=== PATIENT | female | born 1990 | race Caucasian/White ===

== ENCOUNTER 2016-09-06 11:09 | Emergency (ER) | payer OTHER ==
[~2016-09-06 11:09] MED LIST: PRENTAB74 PO
--- NOTE | 2016-09-06 12:03 | EDDOCDS ---
Nurse's Notes [facility] Name: Char Guerra Age: 25 yrs Sex: Female : 1990 Arrival Date: 09/06/2016 Time: 11:09 Bed Triage 1 Private MD: NO PRIMARY PHYSICIAN, . Diagnosis: Cellulitis and abscess of mouth-LEFT UPPER DENTAL ABSCESS;Cutaneous abscess of groin-RIGHT LABIA;Nausea with vomiting, unspecified Presentation: 09/06 11:24 Presenting complaint: Patient states: cold symptoms, toothache, vomiting ingrown hair kpj on right labia and possibly a hemorrhoid x 2 days. Adult Sepsis Screening: The patient does not have new or worsening altered mentation. Patient's respiratory rate is less than 22. Systolic blood pressure is greater than 100. Patient has a qSOFA score of 0- Negative Sepsis Screen. Suicide/Homicide risk assessment- the patient denies having any suicidal and/or homicidal ideations and does not present with any other emotional, behavioral or mental health complaints. 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 Transition of care: patient was not received from another setting of care. 11:24 Acuity: TAI Level 4 [facility] 11:24 Method Of Arrival: Walkin/Carried/Asstd [facility] Triage Assessment: 11:27 General: Appears unkempt, Behavior is appropriate for age. Pain: Location: mouth Pain [facility] currently is 5 out of 10 on a pain scale. Pt Declines HIV testing. Neurological: Level of Consciousness is awake, Oriented to person, place, time. EENT: Poor dentition noted. Reports pain Pain is 5 out of 10 on a pain scale. Respiratory: Airway is patent Respiratory effort is even, unlabored. GI: Reports nausea, vomiting. : Reports ingrown hair right labia. Derm: Skin is pink, warm & dry. 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 clonidine HCl 0.1 mg Oral tab 1 tab 2 times per day (Last dose: 09/06/2016 09:00) 2. Prozac 60 mg Oral cap 1 cap once daily (Last dose: 09/06/2016 09:00) 3. Seroquel 200 mg Oral tab 1 tab nightly (Last dose: 09/05/2016) - PMHx: Bipolar disorder; Borderline Personality Disorder; PTSD; - PSHx: Appendectomy; - Social history: Smoking status: Patient uses tobacco products, heavy tobacco smoker. No barriers to communication noted, The patient speaks fluent Montserratian. - Family history: Not pertinent. - : The pt / caregiver states he / she is not on anticoagulants. Home medication list is obtained from the patient. - Exposure Risk Screening:: None identified. Screenin:01 Screening information is obtained from the patient. Fall risk: No risks identified. srm Assistance ADL's: requires no assistance with activities of daily living. Abuse/DV Screen: The patient / caregiver reports he/she is: not in a situation that causes fear, pain or injury. Nutritional screening: No deficits noted. Advance Directives: There is no active DNR order. home support is adequate. Assessment: 12:01 General: Appears in no apparent distress, Behavior is appropriate for age, cooperative. srm Neurological: No deficits noted. Respiratory: No deficits noted. Vital Signs: 11:11 BP 106 / 59; Pulse 77; Resp 18 S; Temp 97.2(O); Pulse Ox 99% on R/A; Weight 65.77 kg gr2 (R); Height 5 ft. 1 in. (154.94 cm) (R); Pain 5/10; 11:11 Body Mass Index 27.40 (65.77 kg, 154.94 cm) gr2 Vitals: 11:11 Log In Time: September 06, 2016 at 11:11. gr2 ED Course: 11:10 Patient visited by Rosi Moore. gr2 11:10 Patient moved to Waiting gr2 11:11 NO PRIMARY PHYSICIAN, . is Private Physician. gr2 11:13 Patient visited by Rosi Moore. gr2 11:13 Patient moved to Pre RCE gr2 11:25 Triage Initiated [facility] 11:29 [facility] dt4 11:29 Vic Baldwin MD is Attending Physician. dt4 11:29 Patient visited by Sujey Schneider PA-C. dt4 11:29 Patient moved to Triage 1 [facility] 11:52 [facility] is Referral Physician. dt4 12:01 The patient / caregiver is instructed regarding the plan of care and ED course. Patient srm has correct armband on for positive identification. 12:01 No IV's were initiated during this patient's visit. No procedures done that require srm assistance. Order Results: There are currently no results for this order. Outcome: 11:53 Discharge ordered by Provider. dt4 12:01 Discharge Assessment: Patient awake, alert and oriented x 3. No cognitive and/or srm functional deficits noted. Patient verbalized understanding of disposition instructions. patient administered narcotics - no. The following High Risk Discharge criteria are identified: None. Discharged to home ambulatory. Condition: stable. Discharge instructions given to patient, Instructed on discharge instructions, follow up and referral plans. medication usage, Demonstrated understanding of instructions, medications, Pt was receptive of discharge instructions/ teaching. Prescriptions given X 3. No special radiology studies were completed. Property :Personal belongings accompany Pt. 12:02 Patient left the ED. srm Signatures: Patience Balderrama RN RN kpj Michelson, Staci, RN RN srm Raymond, Gainslee gr2 Sujey Schneider PA-C PA-C dt4 MTDTiki
--- NOTE | 2016-09-06 12:03 | EDDOCDS ---
Physician Documentation [facility] Name: Char Guerra Age: 25 yrs Sex: Female : 1990 Arrival Date: 09/06/2016 Time: 11:09 Bed Triage 1 Private MD: NO PRIMARY PHYSICIAN, . Disposition: 09/06/16 11:53 Discharged to Home/Self Care. Impression: Cellulitis and abscess of mouth - LEFT UPPER DENTAL ABSCESS, Cutaneous abscess of groin - RIGHT LABIA, Nausea with vomiting, unspecified. - Condition is Stable. - Discharge Instructions: Abscess, Nausea and Vomiting. - Prescriptions for Clindamycin HCl 300 mg Oral Capsule - take 1 capsule by ORAL route every 6 hours; 40 capsule. ZOFRAN ODT 4 mg - dissolve 1 tablet by ORAL route 4 times per day As needed do not chew, do not swallow whole; 10 tablet. magic mouthwash Mucous Membrane Solution - as directed 5 milliliters by ORAL route 3-4 times daily As needed GARGLE, SWISH, SPIT. MAALOX, LIQUID BENADRYL, VISCOUS LIDOCAINE.; 237 milliliter. - Medication Reconciliation, Local Pharmacy Hours form. - Follow up: Emergency Department; When: As needed; Reason: Worsening of conditions. Follow [facility]: [facility]; When: Call to arrange an appointment; Reason: Recheck today's complaints, Continuance of care, To establish care. - Problem is new. - Symptoms are unchanged. Historical: - Allergies: Geodon (Sleepy); Macrobid (Hives); Zoloft (rivera); - Home Meds: 1. clonidine HCl 0.1 mg Oral tab 1 tab 2 times per day (Last dose: 09/06/2016 09:00) 2. Prozac 60 mg Oral cap 1 cap once daily (Last dose: 09/06/2016 09:00) 3. Seroquel 200 mg Oral tab 1 tab nightly (Last dose: 09/05/2016) - PMHx: Bipolar disorder; Borderline Personality Disorder; PTSD; - PSHx: Appendectomy; - Social history: Smoking status: Patient uses tobacco products, heavy tobacco smoker. No barriers to communication noted, The patient speaks fluent Uzbek. - Family history: Not pertinent. - : The pt / caregiver states he / she is not on anticoagulants. Home medication list is obtained from the patient. - Exposure Risk Screening:: None identified. 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 1 in. (154.94 cm) (R); Pain 5/10; 11:11 Body Mass Index 27.40 (65.77 kg, 154.94 cm) gr2 MDM: 11:34 Financial registration complete. Signatures: Patience Balderrama RN RN kpj Michelson, Staci, RN RN srm Ganter, LoriLee, Francisco Reg Sujey Schneider PA-C PA-C dt4 LIGIA
--- NOTE | 2016-09-08 13:04 | EDDOCDS ---
Nurse's Notes [facility] Name: Char Guerra Age: 25 yrs Sex: Female : 1990 Arrival Date: 09/06/2016 Time: 11:09 Bed Triage 1 Private MD: NO PRIMARY PHYSICIAN, . Diagnosis: Cellulitis and abscess of mouth-LEFT UPPER DENTAL ABSCESS;Cutaneous abscess of groin-RIGHT LABIA;Nausea with vomiting, unspecified Presentation: 09/06 11:24 Presenting complaint: Patient states: cold symptoms, toothache, vomiting ingrown hair kpj on right labia and possibly a hemorrhoid x 2 days. Adult Sepsis Screening: The patient does not have new or worsening altered mentation. Patient's respiratory rate is less than 22. Systolic blood pressure is greater than 100. Patient has a qSOFA score of 0- Negative Sepsis Screen. Suicide/Homicide risk assessment- the patient denies having any suicidal and/or homicidal ideations and does not present with any other emotional, behavioral or mental health complaints. 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 Transition of care: patient was not received from another setting of care. 11:24 Acuity: TAI Level 4 [facility] 11:24 Method Of Arrival: Walkin/Carried/Asstd [facility] Triage Assessment: 11:27 General: Appears unkempt, Behavior is appropriate for age. Pain: Location: mouth Pain [facility] currently is 5 out of 10 on a pain scale. Pt Declines HIV testing. Neurological: Level of Consciousness is awake, Oriented to person, place, time. EENT: Poor dentition noted. Reports pain Pain is 5 out of 10 on a pain scale. Respiratory: Airway is patent Respiratory effort is even, unlabored. GI: Reports nausea, vomiting. : Reports ingrown hair right labia. Derm: Skin is pink, warm & dry. 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 clonidine HCl 0.1 mg Oral tab 1 tab 2 times per day (Last dose: 09/06/2016 09:00) 2. Prozac 60 mg Oral cap 1 cap once daily (Last dose: 09/06/2016 09:00) 3. Seroquel 200 mg Oral tab 1 tab nightly (Last dose: 09/05/2016) - PMHx: Bipolar disorder; Borderline Personality Disorder; PTSD; - PSHx: Appendectomy; - Social history: Smoking status: Patient uses tobacco products, heavy tobacco smoker. No barriers to communication noted, The patient speaks fluent Greenlandic. - Family history: Not pertinent. - : The pt / caregiver states he / she is not on anticoagulants. Home medication list is obtained from the patient. - Exposure Risk Screening:: None identified. Screenin:01 Screening information is obtained from the patient. Fall risk: No risks identified. srm Assistance ADL's: requires no assistance with activities of daily living. Abuse/DV Screen: The patient / caregiver reports he/she is: not in a situation that causes fear, pain or injury. Nutritional screening: No deficits noted. Advance Directives: There is no active DNR order. home support is adequate. Assessment: 12:01 General: Appears in no apparent distress, Behavior is appropriate for age, cooperative. srm Neurological: No deficits noted. Respiratory: No deficits noted. Vital Signs: 11:11 BP 106 / 59; Pulse 77; Resp 18 S; Temp 97.2(O); Pulse Ox 99% on R/A; Weight 65.77 kg gr2 (R); Height 5 ft. 1 in. (154.94 cm) (R); Pain 5/10; 11:11 Body Mass Index 27.40 (65.77 kg, 154.94 cm) gr2 Vitals: 11:11 Log In Time: September 06, 2016 at 11:11. gr2 ED Course: 11:10 Patient visited by oRsi Moore. gr2 11:10 Patient moved to Waiting gr2 11:11 NO PRIMARY PHYSICIAN, . is Private Physician. gr2 11:13 Patient visited by Rosi Moore. gr2 11:13 Patient moved to Pre RCE gr2 11:25 Triage Initiated [facility] 11:29 [facility] dt4 11:29 Vic Baldwin MD is Attending Physician. dt4 11:29 Patient visited by Sujey Schneider PA-C. dt4 11:29 Patient moved to Triage 1 [facility] 11:52 [facility] is Referral Physician. dt4 12:01 The patient / caregiver is instructed regarding the plan of care and ED course. Patient srm has correct armband on for positive identification. 12:01 No IV's were initiated during this patient's visit. No procedures done that require srm assistance. 12:16 [facility] Payment Agreement was scanned into [email or web address] and attached to record. 21:58 T-Sheet-- Draft Copy was scanned into [email or web address] and attached to record. klr Order Results: There are currently no results for this order. Outcome: 11:53 Discharge ordered by Provider. dt4 12:01 Discharge Assessment: Patient awake, alert and oriented x 3. No cognitive and/or srm functional deficits noted. Patient verbalized understanding of disposition instructions. patient administered narcotics - no. The following High Risk Discharge criteria are identified: None. Discharged to home ambulatory. Condition: stable. Discharge instructions given to patient, Instructed on discharge instructions, follow up and referral plans. medication usage, Demonstrated understanding of instructions, medications, Pt was receptive of discharge instructions/ teaching. Prescriptions given X 3. No special radiology studies were completed. Property :Personal belongings accompany Pt. 12:02 Patient left the ED. srm Signatures: Patience Balderrama, RN RN Amie Braxton, RN RN Deloris Lopes, Reg Reg lg Rosi Moore gr2 Sujey Schneider PA-C PA-C dt4 Juanita Jeter Chart Complete MTDD
--- NOTE | 2016-09-08 13:04 | EDDOCDS ---
Physician Documentation [facility] Name: Char Guerra Age: 25 yrs Sex: Female : 1990 Arrival Date: 09/06/2016 Time: 11:09 Bed Triage 1 Private MD: NO PRIMARY PHYSICIAN, . Disposition: 09/06/16 11:53 Discharged to Home/Self Care. Impression: Cellulitis and abscess of mouth - LEFT UPPER DENTAL ABSCESS, Cutaneous abscess of groin - RIGHT LABIA, Nausea with vomiting, unspecified. - Condition is Stable. - Discharge Instructions: Abscess, Nausea and Vomiting. - Prescriptions for Clindamycin HCl 300 mg Oral Capsule - take 1 capsule by ORAL route every 6 hours; 40 capsule. ZOFRAN ODT 4 mg - dissolve 1 tablet by ORAL route 4 times per day As needed do not chew, do not swallow whole; 10 tablet. magic mouthwash Mucous Membrane Solution - as directed 5 milliliters by ORAL route 3-4 times daily As needed GARGLE, SWISH, SPIT. MAALOX, LIQUID BENADRYL, VISCOUS LIDOCAINE.; 237 milliliter. - Medication Reconciliation, Local Pharmacy Hours form. - Follow up: Emergency Department; When: As needed; Reason: Worsening of conditions. Follow [facility]: [facility]; When: Call to arrange an appointment; Reason: Recheck today's complaints, Continuance of care, To establish care. - Problem is new. - Symptoms are unchanged. Historical: - Allergies: Geodon (Sleepy); Macrobid (Hives); Zoloft (rivera); - Home Meds: 1. clonidine HCl 0.1 mg Oral tab 1 tab 2 times per day (Last dose: 09/06/2016 09:00) 2. Prozac 60 mg Oral cap 1 cap once daily (Last dose: 09/06/2016 09:00) 3. Seroquel 200 mg Oral tab 1 tab nightly (Last dose: 09/05/2016) - PMHx: Bipolar disorder; Borderline Personality Disorder; PTSD; - PSHx: Appendectomy; - Social history: Smoking status: Patient uses tobacco products, heavy tobacco smoker. No barriers to communication noted, The patient speaks fluent Frisian. - Family history: Not pertinent. - : The pt / caregiver states he / she is not on anticoagulants. Home medication list is obtained from the patient. - Exposure Risk Screening:: None identified. 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 1 in. (154.94 cm) (R); Pain 5/10; 11:11 Body Mass Index 27.40 (65.77 kg, 154.94 cm) gr2 MDM: 11:34 Financial registration complete. lg 12:16 [facility] Payment Agreement was scanned into [employer] and attached to record. lg 21:58 T-Sheet-- Draft Copy was scanned into [employer] and attached to record. klr Signatures: Patience Balderrama RN RN kpj Michelson, Staci, RN RN [facility] Lucy, Deloris, Reg Reg Sujey Schneider PA-C PA-C dt4 Redder, Kathie klr The chart was reviewed and I authenticate all verbal orders and agree with the evaluation and treatment provided.Attachments: 12:16 [facility] Payment Agreement lg 21:58 T-Sheet-- Draft Copy klr Chart Complete MTDD
--- NOTE | 2016-09-08 13:04 | EDDOCDS ---
Physician Documentation [facility] Name: Char Guerra Age: 25 yrs Sex: Female : 1990 Arrival Date: 09/06/2016 Time: 11:09 Bed Triage 1 Private MD: NO PRIMARY PHYSICIAN, . Disposition: 09/06/16 11:53 Discharged to Home/Self Care. Impression: Cellulitis and abscess of mouth - LEFT UPPER DENTAL ABSCESS, Cutaneous abscess of groin - RIGHT LABIA, Nausea with vomiting, unspecified. - Condition is Stable. - Discharge Instructions: Abscess, Nausea and Vomiting. - Prescriptions for Clindamycin HCl 300 mg Oral Capsule - take 1 capsule by ORAL route every 6 hours; 40 capsule. ZOFRAN ODT 4 mg - dissolve 1 tablet by ORAL route 4 times per day As needed do not chew, do not swallow whole; 10 tablet. magic mouthwash Mucous Membrane Solution - as directed 5 milliliters by ORAL route 3-4 times daily As needed GARGLE, SWISH, SPIT. MAALOX, LIQUID BENADRYL, VISCOUS LIDOCAINE.; 237 milliliter. - Medication Reconciliation, Local Pharmacy Hours form. - Follow up: Emergency Department; When: As needed; Reason: Worsening of conditions. Follow up: [facility]; When: Call to arrange an appointment; Reason: Recheck today's complaints, Continuance of care, To establish care. - Problem is new. - Symptoms are unchanged. Historical: - Allergies: Geodon (Sleepy); Macrobid (Hives); Zoloft (rivera); - Home Meds: 1. clonidine HCl 0.1 mg Oral tab 1 tab 2 times per day (Last dose: 09/06/2016 09:00) 2. Prozac 60 mg Oral cap 1 cap once daily (Last dose: 09/06/2016 09:00) 3. Seroquel 200 mg Oral tab 1 tab nightly (Last dose: 09/05/2016) - PMHx: Bipolar disorder; Borderline Personality Disorder; PTSD; - PSHx: Appendectomy; - Social history: Smoking status: Patient uses tobacco products, heavy tobacco smoker. No barriers to communication noted, The patient speaks fluent German. - Family history: Not pertinent. - : The pt / caregiver states he / she is not on anticoagulants. Home medication list is obtained from the patient. - Exposure Risk Screening:: None identified. 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 1 in. (154.94 cm) (R); Pain 5/10; 11:11 Body Mass Index 27.40 (65.77 kg, 154.94 cm) gr2 MDM: 11:34 Financial registration complete. lg 12:16 [facility] Payment Agreement was scanned into [employer] and attached to record. lg 21:58 T-Sheet-- Draft Copy was scanned into [employer] and attached to record. klr Signatures: Patience Balderrama RN RN kpj Michelson, Staci, RN RN [facility] Lucy, Deloris, Reg Reg Sujey Schneider PA-C PA-C dt4 Redder, Kathie klr The chart was reviewed and I authenticate all verbal orders and agree with the evaluation and treatment provided.Attachments: 12:16 [facility] Payment Agreement lg 21:58 T-Sheet-- Draft Copy klr Chart Complete MTDD
== END 2016-09-06 12:02 | disposition home or self-care (01) ==
LOC: M ED 11:09
DX: K04.7 Periapical abscess without sinus (principal); N76.4 Abscess of vulva; R11.2 Nausea with vomiting, unspecified; F31.9 Bipolar disorder, unspecified; F43.10 Post-traumatic stress disorder, unspecified; F60.3 Borderline personality disorder; F17.200 Nicotine dependence, unspecified, uncomplicated; Z79.899 Other long term (current) drug therapy; Z88.8 Allergy status to other drugs, medicaments and biological substances; Z88.1 Allergy status to other antibiotic agents

== ENCOUNTER 2017-03-04 14:42 | Emergency (ER) | payer OTHER ==
[~2017-03-04] VITALS: Ht 152.4 cm; Wt 70.0 kg
[2017-03-04 17:20] LABS: BASO % 0.2 % (0.0-1.0); EOS # 0.3 K/mm3 (0.0-0.50); EOS % 3.9 % (0.0-3.0); LARGE UNSTAINED CELL # 0.1 K/mm3 (0.0-0.4); LARGE UNSTAINED CELL % 1.7 % (0.0-4.0); MEAN CORPUSCULAR HEMOGLOBIN 31.2 pg (27.0-33.0); MEAN CORPUSCULAR HGB CONC 34.4 g/dl (32.0-36.5); MEAN CORPUSCULAR VOLUME 90.9 fl (80.0-96.0); MONO # 0.4 K/mm3 (0.0-0.8); NEUTROPHILS # 4.7 K/mm3 (1.8-7.7); NEUTROPHILS % 62.3 % (36.0-66.0); PLATELET COUNT, AUTOMATED 301 k/mm3 (150-450); RED CELL DISTRIBUTION WIDTH 12.1 % (11.5-14.5); WHITE BLOOD COUNT 7.5 K/mm3 (4.0-10.0)
[2017-03-04] MEDS ORDERED: TYLE325T5 PO (19:03)
[2017-03-04 19:04] VITALS: BP 118/51
--- NOTE | 2017-03-04 21:31 | REP ---
FIRST TRIMESTER OB AND ENDOVAGINAL PROBE ULTRASOUND: 03/04/2017. Clinical history: Right lower quadrant pain. By LMP, 5 weeks gestation. Findings: The bladder is empty for this examination and endovaginal probe was also performed. Uterus anteverted. It measures 8.8 x 5 x 5.3 cm. On the EV probe a gestational sac is seen and it measures 5.1 x 3.4 x 4.3 mm corresponding to 5 weeks 1 day gestation by mean sac diameter. There is no visible pole or yolk sac. No fluid in the endometrial cavity or endocervical canal. The right ovary is 3 x 2.7 x 3.1 cm and the involuting follicle or corpus luteum 2.3 x 2 x 1.6 cm. Doppler flow on the right ovary shows resistive index of the 0.6, no torsion. The left ovary is 2.6 x 2.4 x 1.5 cm. Parovarian cyst 1.5 x 1.4 x 1.3 cm seen. Doppler shows resistive index of 0.5 with normal color flow, no torsion. Trace amount of fluid about the right ovary Impression: 1. Gestational sac in the body and fundus of the uterus with a mean sac diameter consistent with 5 weeks 1 day size. No subchorionic bleed or fluid in the endometrial cavity. No yolk sac or pole seen. 2. Involuting corpus luteum or cyst right ovary 2.3 x 2 cm, parovarian cyst on the left 1.5 x 1.4 cm with normal ovarian Doppler and no trace right adnexal free fluid. 3. Findings may reflect early IUP versus a blighted ovum, cannot exclude an ectopic at this time. Clinical and ultrasound follow-up recommended. Signed by Russell Arriaga MD 03/05/2017 11:01 A
== END 2017-03-04 19:20 | disposition home or self-care (01) ==
LOC: M ED 14:42
DX: O99.89 Other specified diseases and conditions complicating pregnancy, childbirth and the puerperium (principal); N83.299 Other ovarian cyst, unspecified side; N13.70 Vesicoureteral-reflux, unspecified; O99.330 Smoking (tobacco) complicating pregnancy, unspecified trimester; Z3A.00 Weeks of gestation of pregnancy not specified; Z79.899 Other long term (current) drug therapy

== ENCOUNTER → 2017-03-06 | Outpatient (CLI) | payer OTHER ==
[~2017-03-06] MED LIST changes: +TYLE325T5 PO
== END ==
LOC: M LAB 12:05
PROVIDERS: ATTEND Nurse Practitioner Family
DX: R10.9 Unspecified abdominal pain (principal)

== ENCOUNTER → 2017-03-12 | Outpatient (REF) | payer OTHER ==
[2017-03-12 18:12] LABS: HCG, SERUM QUANTITATIVE 21552 MIU/ML
[2017-03-12 18:14] LABS: MEAN CORPUSCULAR HEMOGLOBIN 31.1 pg (27.0-33.0); MEAN CORPUSCULAR HGB CONC 33.9 g/dl (32.0-36.5); MEAN CORPUSCULAR VOLUME 91.8 fl (80.0-96.0); RED CELL DISTRIBUTION WIDTH 12.3 % (11.5-14.5); WHITE BLOOD COUNT 9.3 K/mm3 (4.0-10.0)
[2017-03-13 14:35] LABS: HBsAg Prenatal NEGATIVE (NEGATIVE)
== END ==
LOC: M LAB REF 16:31
PROVIDERS: ATTEND Obstetrics & Gynecology
DX: O36.80X0 Pregnancy with inconclusive fetal viability, not applicable or unspecified (principal)

== ENCOUNTER → 2017-08-19 | Outpatient (CLI) | payer OTHER ==
[2017-08-19 14:09] LABS: HEMATOCRIT 28.3 % (36.0-47.0); HEMOGLOBIN 9.5 g/dl (12.0-16.0); MEAN CORPUSCULAR HEMOGLOBIN 30.7 pg (27.0-33.0); MEAN CORPUSCULAR HGB CONC 33.6 g/dl (32.0-36.5); MEAN CORPUSCULAR VOLUME 91.6 fl (80.0-96.0); PLATELET COUNT, AUTOMATED 299 10^3/uL (150-450); RED BLOOD COUNT 3.09 10^6/uL (4.00-5.40); RED CELL DISTRIBUTION WIDTH 12.6 % (11.5-14.5); WHITE BLOOD COUNT 12.5 10^3/uL (4.0-10.0)
[2017-08-19 14:32] LABS: GLUCOSE CHALLENGE TEST 1 HOUR 101 MG/DL (LESS THAN 140)
== END ==
LOC: M LAB 12:23
DX: Z34.82 Encounter for supervision of other normal pregnancy, second trimester (principal)
CPT/HCPCS: 82950

== ENCOUNTER → 2019-05-05 | Outpatient (CLI) | payer MEDICAID | LOC: M LAB 11:37 | PROVIDERS: ATTEND Obstetrics & Gynecology Obstetrics | DX: N96 Recurrent pregnancy loss (principal) ==

== ENCOUNTER 2019-05-13 14:26 | Emergency (ER) | payer MEDICAID ==
[~2019-05-13] VITALS: Ht 152.4 cm; Wt 62.8 kg
[2019-05-13 15:00] LABS: BASO % 0.3 % (0.0-1.0); EOS # 0.1 10^3/uL (0.0-0.5); EOS % 1.6 % (0.0-3.0); HEMATOCRIT 33.6 % (36.0-47.0); HEMOGLOBIN 11.4 g/dl (12.0-15.5); LYMPH # 1.6 10^3/uL (1.5-5.0); LYMPH % 21.1 % (24.0-44.0); MEAN CORPUSCULAR HEMOGLOBIN 29.5 pg (27.0-33.0); MEAN CORPUSCULAR HGB CONC 33.9 g/dl (32.0-36.5); MONO # 0.5 10^3/uL (0.0-0.8); MONO % 7.3 % (0.0-5.0); NEUTROPHILS # 5.1 10^3/uL (1.5-8.5); NEUTROPHILS % 69.3 % (36.0-66.0); PLATELET COUNT, AUTOMATED 256 10^3/uL (150-450); RED BLOOD COUNT 3.86 10^6/uL (4.00-5.40); WHITE BLOOD COUNT 7.4 10^3/uL (4.0-10.0)
[2019-05-13 15:50] LABS: ALBUMIN 3.4 GM/DL (3.2-5.2); ALT/SGPT 27 U/L (12-78); BILIRUBIN,DIRECT 0.1 MG/DL (0.0-0.2); BILIRUBIN,TOTAL 0.3 MG/DL (0.2-1.0); BLOOD UREA NITROGEN 6 MG/DL (7-18); CALCIUM LEVEL 8.8 MG/DL (8.5-10.1); CARBON DIOXIDE LEVEL 21 MEQ/L (21-32); CHLORIDE LEVEL 107 MEQ/L (98-107); GLOMERULAR FILTRATION RATE > 60.0 (>60); GLUCOSE, FASTING 87 MG/DL (70-100); HCG, SERUM QUANTITATIVE 87174 MIU/ML; LIPASE 55 U/L (73-393); POTASSIUM SERUM 3.5 MEQ/L (3.5-5.1); SODIUM LEVEL 137 MEQ/L (136-145); TOTAL PROTEIN 6.5 GM/DL (6.4-8.2)
--- NOTE | 2019-05-13 16:37 | REP ---
PELVIC ULTRASOUND: Real-time sonographic evaluation of the pelvis was performed utilizing transabdominal technique. There is an intrauterine gestational sac. The uterus measures 10.3 x 5.9 x 7.2 cm. The gestational sac has a mean diameter of approximately 37 mm corresponding to an estimated gestational age of 9 weeks 0 days. There is a pole within the gestational sac which has a length of 6 mm which corresponds to an estimated age of 6 weeks 3 days. There is a discrepancy between the size of the gestational sac and the pole. There is no heart motion detected. Findings are consistent with an intrauterine demise. Right ovary measures 5.0 x 2.8 x 2.6 cm and the left ovary 4.0 x 1.7 x 1.8 cm. No torsion is seen of either ovary with duplex Doppler evaluation. Complex cystic structure in the right ovary probably represents a complex corpus luteum 2.4 x 2.9 x 1.7 cm. Dominant follicle in the left ovary measures 1.8 cm. There is no free fluid. Electronically Signed by Clovis Drummond MD 05/13/2019 04:43 P
[2019-05-13 18:37] VITALS: BP 129/63
== END 2019-05-13 18:45 | disposition home or self-care (01) ==
LOC: M ED 14:26
DX: O02.1 Missed abortion (principal); F17.200 Nicotine dependence, unspecified, uncomplicated

== ENCOUNTER 2019-11-23 14:12 | Inpatient (IN) | payer MEDICAID, SELFPAY ==
[~2019-11-23] VITALS: Ht 152.4 cm; Wt 50.0 kg
[~2019-11-23 14:12] MED LIST changes: +TRAM50TA2 PO
[2019-11-23 15:02] LABS: HEMATOCRIT 38.2 % (36.0-47.0); HEMOGLOBIN 12.6 g/dl (12.0-15.5); MEAN CORPUSCULAR HEMOGLOBIN 29.5 pg (27.0-33.0); MEAN CORPUSCULAR VOLUME 89.5 fl (80.0-96.0); PLATELET COUNT, AUTOMATED 347 10^3/uL (150-450); RED BLOOD COUNT 4.27 10^6/uL (4.00-5.40); WHITE BLOOD COUNT 7.2 10^3/uL (4.0-10.0)
[2019-11-23 15:31] LABS: HCG, SERUM QUALITATIVE NEGATIVE (NEGATIVE)
[2019-11-23 15:46] LABS: ACETAMINOPHEN LEVEL < 2.0 UG/ML (10.0-30.0); ALT/SGPT 19 U/L (12-78); BILIRUBIN,DIRECT 0.1 MG/DL (0.0-0.2); BILIRUBIN,TOTAL 0.4 MG/DL (0.2-1.0); BLOOD UREA NITROGEN 7 MG/DL (7-18); CALCIUM LEVEL 9.2 MG/DL (8.5-10.1); CARBON DIOXIDE LEVEL 26 MEQ/L (21-32); CHLORIDE LEVEL 110 MEQ/L (98-107); ETHYL ALCOHOL (ETHANOL) < 0.003 % (0.000-0.010); GLOMERULAR FILTRATION RATE > 60.0 (>60); GLUCOSE, FASTING 106 MG/DL (70-100); POTASSIUM SERUM 3.8 MEQ/L (3.5-5.1); SALICYLATE LEVEL < 1.7 MG/DL (5.0-30.0); SODIUM LEVEL 141 MEQ/L (136-145); THYROID STIMULATING HORMONE 0.914 uIU/ML (0.358-3.740); TOTAL PROTEIN 7.1 GM/DL (6.4-8.2)
--- NOTE | 2019-11-23 16:27 | REP ---
REASON: Hallucinations. TECHNIQUE: 4.5 mm contiguous transaxial sections were obtained from the skull base to the cerebral convexities with thin cuts through the posterior fossa without the administration of intravenous contrast. FINDINGS: The ventricles and sulci are consistent with the patient's age. There are no extra-axial fluid collections. There is no mass effect. The deep cerebral white matter is consistent with the patient's age. The orbital and petrous structures, cerebellopontine angles, and posterior fossa are unremarkable. The sella turcica, cavernous, and paracavernous structures are essentially unremarkable. The visualized portions of the paranasal sinuses and mastoid air cells are clear. Images of the skull base show no gross abnormality. IMPRESSION: Essentially unremarkable CT examination of the brain. Electronically Signed by Anthony Thornton DO 11/23/2019 04:29 P
[2019-11-23 18:41] LABS: AMPHETAMINES LEVEL URINE POSITIVE (NEGATIVE); BARBITURATES URINE NEGATIVE (NEGATIVE); BENZODIAZEPINES URINE NEGATIVE (NEGATIVE); CANNABINOIDS URINE NEGATIVE (NEGATIVE); COCAINE METABOLITE URINE NEGATIVE (NEGATIVE); METHADONE URINE NEGATIVE (NEGATIVE); OPIATES URINE NEGATIVE (NEGATIVE); PHENCYCLIDINE URINE NEGATIVE (NEGATIVE)
[2019-11-23] MEDS ORDERED: ACETAMINOPHEN TAB 650MG DOSE (2X325MG) PO PRN (19:00)
[2019-11-23] MEDS ORDERED: MOM 30ML SUSPENSION UDC PO PRN (19:00)
[2019-11-23] MEDS ORDERED: traZODone 50 MG TAB PO PRN (19:00)
[2019-11-23] MEDS ORDERED: MAALOX 30 ML SUSP *UDC PO PRN (19:00)
[2019-11-23] MEDS ORDERED: OLANZapine ORAL DISINTEGRATING TAB 5MG PO PRN (19:00)
[2019-11-23] MEDS ORDERED: HALOPERIDOL 5MG/ML VIAL (J1630 PER 1) IM STA (20:57)
[2019-11-23] MEDS ORDERED: LORazepam 2 MG/ML VIAL (J2060) IM STA (20:57)
[2019-11-23] MEDS ORDERED: diphenhydrAMINE 50MG/ML VIAL (J1200) IM STA (20:57)
[2019-11-23] MEDS: PALIPERIDONE 3 MG ER TAB (INVEGA) PO SCH (21:00)
--- NOTE | 2019-11-23 21:20 | IPNPDOC ---
Text Note Date of Service The patient was seen on 11/23/19. NOTE PSYCH CERTIFICATION FACE TO FACE: yes PHYSICIAN ASSESSMENT: The patient was agitated, yelling at staff and not following verbal instructions VITALS: see below GEN: angry / yelling REASON FOR RESTRAINT: The patient was a danger to the staff and not following commands DE-ESCALATION INTERVENTIONS ATTEMPTED BEFORE USE OF RESTRAINTS: verbal redirection [MECHANICAL AND/OR CHEMICAL] RESTRAINTS USED: Both LENGTH OF TIME ORDERED IN RESTRAINTS: 4 hours WHEN TO DISCONTINUE RESTRAINTS: When the patient is no longer a threat to to herself or others Post evaluation of restraint due in 24 hours. VS,Fishbone, I+O VS, Fishbone, I+O Vital Signs Date Time Temp Pulse Resp B/P (MAP) Pulse Ox O2 Delivery O2 Flow Rate FiO2 11/23/19 22:30 98.0 69 12 109/66 11/23/19 16:43 98.6 103 18 131/75 (93) 97 Room Air 11/23/19 14:15 98.2 120 18 128/80 97 Room Air Laboratory Tests 11/23/19 14:51: White Blood Count 7.2, Red Blood Count 4.27, Hemoglobin 12.6, Hematocrit 38.2, Mean Corpuscular Volume 89.5, Mean Corpuscular Hemoglobin 29.5, Mean Corpuscular Hemoglobin Concent 33.0, Red Cell Distribution Width 14.6H, Platelet Count 347, Nucleated Red Blood Cells % (auto) 0.0, Sodium Level 141, Potassium Level 3.8, Chloride Level 110H, Carbon Dioxide Level 26, Anion Gap 5L, Blood Urea Nitrogen 7, Creatinine 0.80, Glomerular Filtration Rate > 60.0, Fasting Glucose 106H, Calcium Level 9.2, Total Bilirubin 0.4, Direct Bilirubin 0.1, Aspartate Amino Transf (AST/SGOT) 10, Alanine Aminotransferase (ALT/SGPT) 19, Alkaline Phosphatase 84, Total Protein 7.1, Albumin 4.0, Albumin/Globulin Ratio 1.29, Th yroid Stimulating Hormone (TSH) 0.914, Human Chorionic Gonadotropin, Qual NEGATIVE, Salicylates Level < 1.7L, Acetaminophen Level < 2.0L, Ethyl Alcohol Level < 0.003 11/23/19 18:09: Urine Opiates Screen NEGATIVE, Urine Methadone Screen NEGATIVE, Urine Barbiturates Screen NEGATIVE, Urine Phencyclidine Screen NEGATIVE, Urine Amphetamines Screen POSITIVEH, Urine Benzodiazepines Screen NEGATIVE, Urine Cocaine Metabolite Screen NEGATIVE, Urine Cannabinoids Screen NEGATIVE Laboratory Tests 11/23/19 14:51 Vital Signs Date Time Temp Pulse Resp B/P (MAP) Pulse Ox O2 Delivery O2 Flow Rate FiO2 11/23/19 16:43 98.6 103 18 131/75 (93) 97 Room Air AROLDO OCHOA MD November 23, 2019 21:20
[2019-11-23 22:30] VITALS: BP 109/66
[2019-11-23 23:30] VITALS: BP 115/61
[2019-11-24 06:31] VITALS: BP 110/64
[2019-11-24] MEDS: PALIPERIDONE 3 MG ER TAB (INVEGA) PO SCH ×2 (09:00→21:39)
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
--- NOTE | 2019-11-24 11:50 | MHPR ---
General Date: November 24, 2019 Time: 11:49 Post-Restraint Evaluation THE OUTCOME OF THE RESTRAINT: sedated EFFECTIVENESS OF THE RESTRAINT: Mechanical and/or chemical: positive ANY EVIDENCE THAT THE PATIENT WAS AFFECTED EMOTIONALLY: n/a ANY NEED FOR COUNSELING/ASSISTANCE: n/a CHANGES IN TREATMENT PLAN: less sedation, monitor RECOMMENDATIONS FOR FUTURE INCIDENTS: stronger prns prior to agitation escalating DORA GARCIA DO November 24, 2019 11:50
--- NOTE | 2019-11-24 17:18 | IPNPDOC ---
Text Note Date of Service The patient was seen on 11/24/19. NOTE Patient refused to answer my questions and she refused any communications. Please let hospitalist service to know when patient will be able to communicate. VS,Fishbone, I+O VS, Fishbone, I+O Vital Signs Date Time Temp Pulse Resp B/P (MAP) Pulse Ox O2 Delivery O2 Flow Rate FiO2 11/24/19 06:31 97.5 68 12 110/64 (79) Room Air 11/23/19 16:43 97 I&O- Last 24 Hours up to 6 AM 11/24/19 06:00 Output Total 400 ml Balance -400 ml LANI GAYLE DO November 24, 2019 17:18
[2019-11-25 06:09] VITALS: BP 109/68
[2019-11-25] MEDS: PALIPERIDONE 3 MG ER TAB (INVEGA) PO SCH (09:28)
--- NOTE | 2019-11-25 10:00 | MHIPNPDOC ---
[facility] Progress Note Progress Note DATE OF SERVICE: 11/25/19 HISTORY: . VITAL SIGNS: See below. NEW TEST RESULTS: . CURRENT MEDICATIONS: See below. MENTAL STATUS EXAMINATION: Patient is a -year old female, who is . Speech: Is . Language skills are . Thought processes including: . Thought content: . Abstract reasoning, and computation: . Description of asso ciations: . Description of abnormal or psychotic thoughts: . Judgment: . Insight: [very limited, good, fair. poor]. Orientation: . Recent and remote memory: . Attention span and concentration: . Language: . Fund of knowledge: . Mood: . Affect: . DIAGNOSES: 1. . 2. . 3. . ASSESSMENT: MANAGEMENT PLAN: . TIME SPENT: minutes. Vital Signs Vital Signs Date Time Temp Pulse Resp B/P (MAP) Pulse Ox O2 Delivery O2 Flow Rate FiO2 11/25/19 06:09 99.0 84 18 109/68 (82) 11/24/19 06:31 Room Air 11/23/19 16:43 97 Current Medications Current Medications Medications (Trade) Dose Ordered Sig/Kalin Route PRN Reason Start Time Stop Time Status Last Admin Dose Admin Acetaminophen (Tylenol Tab) 650 mg Q6HP PRN PO HEADACHE or DISCOMFORT 11/23/19 19:00 Al Hydrox/Mg Hydrox/Simethicone (Mylanta) 30 ml Q4HP PRN PO HEARTBURN/INDIGESTION 11/23/19 19:00 Diphenhydramine HCl (Benadryl) 50 mg STAT STAT IM 11/23/19 20:57 11/23/19 21:00 DC 11/23/19 21:14 Haloperidol (Haldol) 10 mg STAT STAT IM 11/23/19 20:57 11/23/19 21:00 DC 11/23/19 21:14 Home Med (Med Rec Complete!) ASDIRECTED XX 11/23/19 18:15 11/23/19 18:11 DC Lorazepam (Ativan) 2 mg STAT STAT IM 11/23/19 20:57 11/23/19 21:00 DC 11/23/19 21:14 Magnesium Hydroxide (Milk Of Magnesia) 30 ml DAILYPRN PRN PO CONSTIPATION 11/23/19 19:00 Olanzapine (ZyPREXA ZYDIS) 5 mg Q6HP PRN PO AGITATION 11/23/19 19:00 Paliperidone (Invega) 3 mg BID PO 11/23/19 21:00 11/25/19 09:28 Trazodone HCl (Desyrel) 50 mg QHSP PRN PO INSOMNIA 11/23/19 19:00 Allergies Coded Allergies: No Known Allergies (Verified , 02/27/10) DORA GARCIA DO November 25, 2019 10:00
--- NOTE | 2019-11-25 11:22 | MHDSPDOC ---
[facility] Discharge Summary Discharge Summary DATE OF ADMISSION: November 23, 2019 at 18:46 DATE OF DISCHARGE: 11/25/2019 Discharge Char Jones MRN: N/A Date of : N/A Date of Service: 11/25/2019 Diagnoses Unspecified psychotic disorder. Unspecified trauma stress related disorder. Methamphetamine use disorder, severe. History of Present Illness The patient a 29-year-old woman presented to [facility] after acting quite bizarre. She was found to be intoxicated on methamphetamine when she had been admitted against her will she became quite agitated the previous evening and subsequently required restraints. She was to sedated to interview today as she had been given multiple medications. Consultants Involved Hospitalist/PCP screening Treatment and Progress On The Unit The patient was admitted to the inpatient mental health unit. Initially, she was quite intoxicated and psychotic on methamphetamine and subsequently was restrained when she first arrived. She was unable to meet with me when I first was going to see her, as she was still quite sedated from her medications. However, she resolved and her methamphetamine intoxication psychosis evaporated. She was somewhat irritable and grouchy, however, she was no longer violent or aggressive. She was met with where she described that she had been using methamphetamine nearly daily for weeks or even months prior to her presentation and had become quite psychotic. She reported that she didn't even remember her admission and how she had arrived. Nurses noted that she was quite surprised to find herself on a psychiatric unit. She improved well and although being mildly irritable was no longer deemed a danger to herself and she did not meet involuntary criteria to be extended. She was allowed to leave at her request. Discharge Assessment 29-year-old woman with likely methamphetamine-related psychosis presents and resolves quite quickly once her intoxication wears off. She at baseline likely has some trauma disorder, however, the patient is generally uninterested in care at this time and although irritable, does not meet involuntary criteria as she i s no longer suicidal or homicidal and she has been able to maintain behavioral control for well over a day. As she approaches the 48-hour point, I have difficulty extending her on an involuntary admission at this time, as she does not meet this full criteria in my opinion due to the aforementioned factors. She would likely make little benefit on our unit and will be most appropriate in an outpatient addiction program, she declines voluntary and will be discharged in accordance with her will in good giselle. Mental Status Examination General: Well dressed with good hygiene Speech: Spontaneous and fluid Thought processes: Linear and logical MSK: Smooth and coordinated gait, no signs of tremors or involuntary orofacial movements Thought content: Future orientated Abstract reasoning, and computation: Intact Description of associations: Intact Description of abnormal or psychotic thoughts: Denies any suicidal or homicidal ideation. Denies any auditory or visual hallucinations. Does not appear to be responding to internal stimuli. Does not appear to be endorsing any bizarre or paranoid ideation. Judgment: Chronically limited. Insight: Chronically limited. Orientation: Alert and orientated 3 Cognition: Grossly normal Recent and remote memory: Intact Attention span and concentration: Intact Fund of knowledge: Adequate Mood: "okay" Affect: Mildly irritable, but generally euthymic. Follow Up The social work team worked during the predischarge meeting in order to evaluate for further issues of lethality address them fully before discharge. They worked on safety planning with the patient's family members in order to ensure that the patient will have a safe and effective discharge. Time Spent The amount of time spent in the coordination of care for this patient was approximately 45 minutes. Saturday Vital Signs/I&Os Vital Signs Date Time Temp Pulse Resp B/P (MAP) Pulse Ox O2 Delivery O2 Flow Rate FiO2 11/25/19 06:09 99.0 84 18 109/68 (82) 11/24/19 06:31 Room Air 11/23/19 16:43 97 Medications No Active Prescriptions or Reported Meds Allergies Coded Allergies: No Known Allergies (Verified , 02/27/10) DORA GARCIA DO November 25, 2019 11:22
== END 2019-11-25 14:10 | disposition home or self-care (01) | DRG 751 ==
LOC: M ED 14:12 → M ED INP 18:46 → M PSY 20:53
PROVIDERS: ADMIT Psychiatry & Neurology Psychiatry; ATTEND Psychiatry & Neurology Addiction Medicine
DX: F29 Unspecified psychosis not due to a substance or known physiological condition (principal); Z78.1 Physical restraint status; F43.9 Reaction to severe stress, unspecified; F15.229 Other stimulant dependence with intoxication, unspecified

== ENCOUNTER 2020-03-16 23:19 | Emergency (ER) | payer OTHER ==
[2020-03-16] MEDS: NS 1,000 ML IV SCH (23:33)
[2020-03-16] MEDS ORDERED: LORazepam 2 MG/ML VIAL IV STA (23:57)
--- NOTE | 2020-03-16 23:59 | REPVR ---
PROCEDURE INFORMATION: Exam: XR Chest, 1 View Exam date and time: 03/16/2020 11:42 PM Age: 29 years old Clinical indication: Other: Od, ; additional info: Unresponsive TECHNIQUE: Imaging protocol: XR of the chest Views: 1 view. COMPARISON: No relevant prior studies available. FINDINGS: Lungs: There is decreased inflation of the lungs. No focal infiltrates. Pleural space: Unremarkable. No pleural effusion. No pneumothorax. Heart/Mediastinum: Unremarkable. No cardiomegaly. Bones/joints: Unremarkable. IMPRESSION: Negative poor inspiratory chest. Electronically signed by: Miguel Bae On 03/16/2020 23:58:20 PM
[2020-03-17 00:28] LABS: BASO % 0.2 % (0.0-1.0); EOS # 0.3 10^3/uL (0.0-0.5); EOS % 2.9 % (0.0-3.0); HEMATOCRIT 32.9 % (36.0-47.0); HEMOGLOBIN 11.1 g/dl (12.0-15.5); LYMPH # 2.7 10^3/uL (1.5-5.0); MEAN CORPUSCULAR HEMOGLOBIN 30.2 pg (27.0-33.0); MEAN CORPUSCULAR HGB CONC 33.7 g/dl (32.0-36.5); MEAN CORPUSCULAR VOLUME 89.6 fl (80.0-96.0); MONO # 0.9 10^3/uL (0.0-0.8); NEUTROPHILS # 5.7 10^3/uL (1.5-8.5); NEUTROPHILS % 59.1 % (36.0-66.0); PLATELET COUNT, AUTOMATED 297 10^3/uL (150-450); RED BLOOD COUNT 3.67 10^6/uL (4.00-5.40); WHITE BLOOD COUNT 9.6 10^3/uL (4.0-10.0)
[2020-03-17] MEDS ORDERED: LORazepam 2 MG/ML VIAL IV STA (00:34)
[2020-03-17] MEDS ORDERED: LORazepam 2 MG/ML VIAL As Ordered ONE (00:37)
[2020-03-17 00:52] LABS: ACETAMINOPHEN LEVEL < 2.0 UG/ML (10.0-30.0); ALBUMIN 3.1 GM/DL (3.2-5.2); ALT/SGPT 10 U/L (12-78); AMPHETAMINES LEVEL URINE POSITIVE (NEGATIVE); BARBITURATES URINE NEGATIVE (NEGATIVE); BENZODIAZEPINES URINE NEGATIVE (NEGATIVE); BILIRUBIN,DIRECT < 0.1 MG/DL (0.0-0.2); BILIRUBIN,TOTAL 0.2 MG/DL (0.2-1.0); BLOOD UREA NITROGEN 7 MG/DL (7-18); CALCIUM LEVEL 8.6 MG/DL (8.5-10.1); CANNABINOIDS URINE NEGATIVE (NEGATIVE); CARBON DIOXIDE LEVEL 26 MEQ/L (21-32); CHLORIDE LEVEL 107 MEQ/L (98-107); COCAINE METABOLITE URINE NEGATIVE (NEGATIVE); CREATININE FOR GFR 0.52 MG/DL (0.55-1.30); ETHYL ALCOHOL (ETHANOL) < 0.003 % (0.000-0.010); FREE T4 1.23 NG/DL (0.76-1.46); GLOMERULAR FILTRATION RATE > 60.0 (>60); GLUCOSE, FASTING 82 MG/DL (70-100); METHADONE URINE NEGATIVE (NEGATIVE); OPIATES URINE NEGATIVE (NEGATIVE); PHENCYCLIDINE URINE NEGATIVE (NEGATIVE); SALICYLATE LEVEL 2.9 MG/DL (5.0-30.0); SODIUM LEVEL 138 MEQ/L (136-145); THYROID STIMULATING HORMONE 0.302 uIU/ML (0.358-3.740); TOTAL PROTEIN 6.3 GM/DL (6.4-8.2)
[2020-03-17] MEDS: NS 1,000 ML IV SCH (07:18)
[2020-03-17 13:23] VITALS: BP 98/60
--- NOTE | 2020-03-24 14:09 | ECGEPIP ---
[facility] - ED Test Date: 2020-03-16 Pat Name: FIDEL COOK Department: Room: - Gender: Female Gm Video: josias : 1990 Requested By: KAY Moncada Order Number: [id number] Reading MD: Tracie Mcmanus Measurements Intervals Allison Rate: 80 P: -30 AL: 91 QRS: 55 QRSD: 97 T: 53 QT: 354 QTc: 408 Interpretive Statements SINUS RHYTHM WITH SINUS ARRHYTHMIA WITH SHORT AL INTERVAL BORDERLINE ECG SEE SCANNED DOWNTIME REPORT
== END 2020-03-17 13:30 | disposition home or self-care (01) ==
LOC: M ED 23:19 → EDBD 23:19 → M ED 03-17 13:30 → ENRESERV 03-17 16:17 → CANRESERV 03-17 16:17
DX: F15.10 Other stimulant abuse, uncomplicated (principal); R94.31 Abnormal electrocardiogram [ECG] [EKG]; F31.9 Bipolar disorder, unspecified; F43.10 Post-traumatic stress disorder, unspecified
CPT/HCPCS: 71045; 80048; 80076; 80307; 82550; 84439; 84443; 85025; 93005; 93041; 94760; 96361; 96374; 99285; G0480; J2060